=== PATIENT | female | born 1950 | race Caucasian/White ===

== ENCOUNTER → 2017-09-02 | Outpatient (CLI) | payer MEDICARE, OTHER ==
[~2017-09-02] MED LIST: ASC500 PO; CALC500T42 PO; CEP500 PO; IBUP-1455 PO; IBUP-56 PO; LOSA-54 PO; METF-410 PO; MULT-820 PO; PER PO
--- NOTE | 2017-09-03 08:55 | RADIOLOGY IMAGING REPORT ---
FACILITY: [facility] PATIENT NAME: DANNY DONOVAN : [id number] MR: [id number] V: [id number] EXAM DATE: ORDERING PHYSICIAN: TOBY JIMENEZ TECHNOLOGIST: Chitra Vences PROCEDURE:BILATERAL DIGITAL SCREENING MAMMOGRAM WITH CAD ASSISTED INTERPRETATION AND 3D BREAST TOMOSYNTHESIS. COMPARISON:Prior mammograms dated 09/01/16, 08/27/15, 08/25/14, 08/18/13, 08/17/12 and 08/03/11. INDICATIONS:SCREENING FINDINGS: Moderately heterogeneous fibroglandular tissue is seen throughout the breasts. The parenchymal pattern has remained stable when allowing for difference in mammographic technique and patient positioning. There is no evidence of malignant appearing mass, malignant appearing calcification or other secondary sign of malignancy in either breast. DIAGNOSTIC CATEGORY 2--BENIGN FINDING. RECOMMENDATIONS: ROUTINE MAMMOGRAM AND CLINICAL EVALUATION. IMPRESSION: Bi-RADS 2: No significant abnormality is seen. Images were reviewed with R2CAD and 3D breast tomosynthesis. Dictated by: Vanessa Owens M.D. on 09/02/2017 at 14:24 Transcribed by: SHANE on 09/02/2017 at 15:25 Approved by: Vanessa Owens M.D. on 09/03/2017 at 8:54 [facility]
== END ==
LOC: MAMO 00:31
PROVIDERS: ATTEND Family Medicine
DX: Z12.31 Encounter for screening mammogram for malignant neoplasm of breast (principal)
CPT/HCPCS: 77063; 77067

== ENCOUNTER → 2018-06-09 | Outpatient (CLI) | payer MEDICARE, OTHER ==
[~2018-06-09] MED LIST changes: +IOPAMIDOL 76% 75 ML INFUS BTL 75 ML ONE; -METF-410 PO; +METF-450 PO; +NS(*) 0.9% 50 ML BAG 50 ML ONE
--- NOTE | 2018-06-09 17:04 | RADIOLOGY IMAGING REPORT ---
FACILITY: [facility] - [place], [place] PATIENT NAME: Huong Ramos : 1950 MR: [id number] V: [id number] EXAM DATE: ORDERING PHYSICIAN: ZO CALDERA TECHNOLOGIST: Location: [facility] - [place] Patient: Huong Ramos : 1950 Visit/Account:[id number] Date of Sevice: 06/09/2018 EXAMINATION: CTA head with IV contrast HISTORY: Cerebral aneurysm. COMPARISON: CT head from 01/08/2017. TECHNIQUE: Overlapping thin sections were obtained during a bolus of IV contrast from the upper nec k through the upper cerebrum. Reconstruction of the source data set includes multiplanar 2D in the sa gittal and coronal planes, and 3D sagittal and coronal thin slab MIP series. Plate Worker images [place] ve been stored on PACS. CONTRAST: 75 mL of IV Isovue-370. One of the following dose optimization techniques was utilized in the performance of this exam: Autom ated exposure control; adjustment of the mA and/or kV according to the patient's size; or use of an i terative reconstruction technique. Specific details can be referenced in the facility's radiology C T exam operational policy. FINDINGS: Angiographic findings: Internal carotids: There is a stent in the distal cavernous and supraclinoid left internal carotid a rtery, new from previous exam. The stent is well-positioned with normal internal enhancement. There i s no aneurysm along the stent, or at the margins of the stent. Vertebrobasilar: Vertebral arteries are codominant. No irregularity or stenosis of either vertebral artery. Both vertebral arteries contribute to the basilar artery. [place]: Patent anterior communicating artery and small right posterior communicating [place] ry. No left posterior communicating artery. VIR[place] circulation: Negative. MCA circulation: Negative. BIOLOGICAL SCIENCE TECHNICIAN FISH circulation: Negative. Additional non-angiographic findings: There is patchy hypodensity in the right anterior frontal lobes at sites of hemorrhage on previous ex am. IMPRESSION: 1. Stent in the distal cavernous and supraclinoid left internal carotid artery is well-positioned. 2. No evidence of an intracranial aneurysm. 3. Mild gliosis in the right frontal lobe at sites of hemorrhage on prior CT. Report Dictated By: Tamika Gomes MD at 06/09/2018 4:52 PM Report E-Signed By: Tamika Gomes MD at 06/09/2018 5:00 PM WSN:[id number]
== END ==
LOC: CT 11:51
PROVIDERS: ATTEND Radiology Diagnostic Radiology
DX: Z98.2 Presence of cerebrospinal fluid drainage device (principal)
CPT/HCPCS: 70496; J7050; Q9967

== ENCOUNTER → 2018-09-14 | Outpatient (CLI) | payer MEDICARE, OTHER ==
[~2018-09-14] MED LIST changes: -IOPAMIDOL 76% 75 ML INFUS BTL 75 ML ONE; -NS(*) 0.9% 50 ML BAG 50 ML ONE
--- NOTE | 2018-09-16 08:30 | RADIOLOGY IMAGING REPORT ---
FACILITY: [facility] - [place] PATIENT NAME: DANNY DONOVAN : [id number] MR: [id number] V: [id number] EXAM DATE: [id number] ORDERING PHYSICIAN: TOBY JIMENEZ TECHNOLOGIST: Chitra Vences PROCEDURE:BILATERAL DIGITAL SCREENING MAMMOGRAM WITH CAD ASSISTED INTERPRETATION & 3D TOMOSYNTHESIS COMPARISON:Prior mammograms dated 09/02/17, 09/01/16, 08/27/15, 08/25/14, 08/18/13, 08/17/12 INDICATIONS:SCREENING FINDINGS: Scattered fibroglandular densities are seen throughout the breasts. The parenchymal pattern has remained stable allowing for difference in mammographic technique & patient positioning. DIAGNOSTIC CATEGORY 1--NEGATIVE. RECOMMENDATIONS: ROUTINE MAMMOGRAM AND CLINICAL EVALUATION. IMPRESSION: BIRADS 1: Negative. No significant abnormality is seen. Dictated by: Vanessa Owens M.D. on 09/14/2018 at 16:57 Transcribed by: DORIAN on 09/15/2018 at 13:32 Approved by: Vanessa Owens M.D. on 09/16/2018 at 8:29 [facility]
== END ==
LOC: MAMO 01:10
PROVIDERS: ATTEND Family Medicine
DX: Z12.31 Encounter for screening mammogram for malignant neoplasm of breast (principal)
CPT/HCPCS: 77063; 77067